=== PATIENT | male | born 1985 | race Caucasian/White ===

== ENCOUNTER → 2020-02-18 | Outpatient (CLI) | payer BC ==
[~2020-02-18] MED LIST: NORCO 5-325 TA1 EACH PO
== END | disposition home or self-care (01) ==
LOC: COVID19 02-04 10:15
PROVIDERS: ATTEND Surgery
DX: Z01.812 Encounter for preprocedural laboratory examination (principal); Z20.828 Contact with and (suspected) exposure to other viral communicable diseases

== ENCOUNTER → 2020-02-23 | Day surgery (SDC) | payer BC ==
[~2020-02-23] VITALS: Ht 190.5 cm; Wt 83.9 kg
[2020-02-23 06:58] VITALS: BP 139/76
[2020-02-23 08:19] VITALS: BP 91/51
[2020-02-23 08:33] VITALS: BP 93/56
[2020-02-23 09:03] VITALS: BP 101/60
== END | disposition home or self-care (01) ==
LOC: SDC 02-05 08:45
PROVIDERS: ATTEND Surgery
DX: D21.6 Benign neoplasm of connective and other soft tissue of trunk, unspecified (principal); L72.0 Epidermal cyst; Z98.890 Other specified postprocedural states; Z87.891 Personal history of nicotine dependence; Z79.899 Other long term (current) drug therapy